=== PATIENT | female | born 2000 | race Caucasian/White ===

== ENCOUNTER 2021-01-26 23:16 | Emergency (ER) | payer OTHER, BC, SELFPAY ==
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
[2021-01-26 23:31] VITALS: BP 120/72; BP 127/83; PULSE 71; PULSE 75; RESP 16; TEMP 36.3; O2SAT 100; BMI 39.1
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
[2021-01-27] MEDS: Ibuprofen 600 MG TABLET PO (00:32)
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
--- NOTE | 2021-01-27 01:35 | PC.NURSE ---
CRUTCHES GIVEN TO PT AND PT DIRECTED HOW TO USE THE CRUTCHES. WILL CONTINUE TO MONITOR PT.
== END 2021-01-27 01:39 | disposition home or self-care (01) ==
PROVIDERS: Emergency Provider Internal Medicine
DX: S90.02XA Contusion of left ankle, initial encounter (principal); V89.2XXA Person injured in unspecified motor-vehicle accident, traffic, initial encounter; Y93.9 Activity, unspecified; Y92.410 Unspecified street and highway as the place of occurrence of the external cause; Y99.9 Unspecified external cause status
CPT/HCPCS: 73610; 73620; 99283

== ENCOUNTER 2021-03-06 17:21 | Emergency (ER) | payer BC, MEDICAID, SELFPAY ==
[2021-03-06 18:01] VITALS: BP 123/85; PULSE 75; RESP 16; TEMP 37.1; O2SAT 100; BMI 31.9
== END 2021-03-06 20:15 | disposition left against medical advice (07) ==
PROVIDERS: Emergency Provider Emergency Medicine
DX: R06.02 Shortness of breath (principal)
CPT/HCPCS: 99281; 99282

== ENCOUNTER 2021-03-20 12:32 | Outpatient (REF) | payer BC, SELFPAY ==
[2021-03-20 12:58] LABS: COVID-19 Test Negative (Negative)
== END 2021-03-20 12:33 | disposition home or self-care (01) ==
LOC: HO.LAB 12:32
PROVIDERS: PCP Nurse Practitioner Pediatrics; Visit Provider Internal Medicine
DX: Z20.822 Contact with and (suspected) exposure to COVID-19 (principal)
CPT/HCPCS: 36415; 87635; C9803

== ENCOUNTER 2022-01-01 14:26 | Emergency (ER) | payer BC, SELFPAY ==
[2022-01-01 14:41] VITALS: BP 125/75; PULSE 68; RESP 18; TEMP 36.8; O2SAT 99; BMI 31.3
--- NOTE | 2022-01-01 14:52 | PC.NURSE ---
patient AXO 3. presents to ed with SI for last two weeks after recent miscarriage . no clear plan . She states I just wish to . with c/o of not sleeping for number of days .
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
== END 2022-01-01 19:24 | disposition home or self-care (01) ==
PROVIDERS: Emergency Provider Emergency Medicine
DX: F32.A Depression, unspecified (principal); Z72.89 Other problems related to lifestyle; Z63.0 Problems in relationship with spouse or partner
CPT/HCPCS: 99282; 99284

== ENCOUNTER 2022-01-03 21:13 | Inpatient (IN) | payer BC, SELFPAY ==
[2022-01-03 21:21] VITALS: BP 125/75; PULSE 81; RESP 17; TEMP 36.2; O2SAT 97; BMI 34.4
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
[2022-01-03 21:55] LABS: COVID-19 Test Negative (Negative)
[2022-01-03 22:04] LABS: MANUAL DIFF FLAG NO
[2022-01-03 22:14] LABS: Basophils Percent Auto 0.4 % (0-2); Eosinophils Percent Auto 0.4 % (0-4); Hematocrit 41.1 % (37.0-47.0); Hemoglobin 13.4 g/dl (12.0-16.0); Imm Gran Abs Auto 0.01 X10*3/uL (0.00-0.03); Imm Gran Pct Auto 0.1 % (0.0-0.4); Lymphocytes Absolute Auto 2.2 X10*3/uL (1.2-4.9); Lymphocytes Percent Auto 31.4 % (20-40); Mean Corpuscular HGB Conc 32.6 g/dl (31.0-35.0); Mean Corpuscular Hemoglobin 26.5 pg (27.0-33.0); Mean Corpuscular Volume 81.4 fL (80.0-98.0); Mean Platelet Volume 9.4 fL (9.4-12.3); Monocytes Absolute Auto 0.3 X10*3/uL (0.1-1.2); Monocytes Percent Auto 4.2 % (2-11); Neutrophils Absolute Auto 4.5 x10*3/uL (2.0-8.3); Neutrophils Percent Auto 63.5 % (45-73); Platelet Count 326 X10*3/uL (160-400); Red Blood Count 5.05 X10*6/uL (4.20-5.50); Red Cell Distribution Width 13.8 % (11.0-16.0); White Blood Count 7.1 X10*3/uL (4.8-10.8)
[2022-01-03 22:16] LABS: Ethanol < 10 mg/dL
[2022-01-03 22:21] LABS: Acetaminophen LAB < 1 mcg/mL (<30); Anion Gap 13 (12-20); Blood Urea Nitrogen 13 mg/dL (9-16); Calcium 9.5 mg/dL (8.4-10.2); Carbon Dioxide 25 mmol/L (22-29); Chloride 107 mmol/L (96-108); Creatinine Clr Calc Pharmacy 112.5; Estimated Glomerular Filt Rate > 60; Glucose Random 89 mg/dL (60-115); Salicylate < 5.0 mg/dL (15-30); Sodium 141 mmol/L (135-145)
--- NOTE | 2022-01-04 06:31 | PC.NURSE ---
Patient slept through the night, no distress observed/reported, behavior non concerning, mood upset, disposition per [facility] is section 12 inpatient bed search, patient is currently not on any maintenance medication, VSS, will continue to monitor.
[2022-01-04 09:41] LABS: Appearance Urine HAZY; Color Urine YELLOW; Glucose Urine UA NEG (NEG); Leukocyte Esterase Urine 1+ (NEG); Nitrite Urine NEG (NEG); Specific Gravity - Urine >= 1.030 (1.005-1.025); Urine Blood 3+ (NEG); Urine Ketones NEG (NEG); Urine Protein TRACE MG/DL (NEG-TRACE)
[2022-01-04 09:47] LABS: UPreg QC Valid YES; Urine Pregnancy NEGATIVE (NEGATIVE)
[2022-01-04 09:49] LABS: Amphetamine Screen Urine Not Detected (Not Detect); Barbiturates, Urine Not Detected (Not Detect); Benzodiazepines Screen Urine Not Detected (Not Detect); Cannabinoid Screen Urine Not Detected (Not Detect); Cocaine Screen Urine Not Detected (Not Detect); Fentanyl, urine Not Detected (Not Detect); Opiate Screen Urine Not Detected (Not Detect); Phencyclidine Screen Urine Not Detected (Not Detect)
[2022-01-04 10:05] LABS: Mucus Urine 2+ /LPF; Squamous Epithelial Cell Urine 1+ /LPF; WBC Urine 50-75 /HPF (0-4)
[2022-01-04 16:29] VITALS: BP 106/71; PULSE 73; RESP 14; TEMP 36.9; O2SAT 96
--- NOTE | 2022-01-05 06:16 | PC.NURSE ---
Patient slept through the night, no distress observed/reported, medication compliant, + for UTI treatment in progress, behavior pleasant and non concerning, disposition per [facility] is section 12 inpatient bed search, VSS, contracted for the safety, will continue to monitor.
[2022-01-05 09:58] VITALS: BP 98/50; PULSE 55; RESP 16; TEMP 36.3; O2SAT 99
[2022-01-05 15:27] VITALS: BP 100/63; PULSE 69; RESP 17; TEMP 36.2; O2SAT 100
--- NOTE | 2022-01-05 23:53 | PC.NURSE ---
Patient in bed appears sleeping, respiration +/=/non-labored bilaterally, no distress observed/reported at this time, medication compliant, behavior pleasant and non concerning, contracted for the safety, VSS, disposition per [facility] is section 12 Inpatient Bed Search, per report patient is pre accepted to for tomorrow, will continue to monitor
[2022-01-05 23:55] VITALS: BP 120/78; PULSE 59; RESP 16; TEMP 36.6; O2SAT 100
--- NOTE | 2022-01-06 | ECG_ITS ---
Test Reason : med clearance Blood Pressure : / mmHG Vent. Rate : 058 BPM Atrial Rate : 058 BPM P-R Int : 178 ms QRS Dur : 096 ms QT Int : 410 ms P-R-T Axes : 032 037 015 degrees QTc Int : 402 ms Sinus bradycardia with sinus arrhythmia Otherwise normal ECG No previous ECGs available Referred By: Cece Tabares Electronically Signed By:Massimo Rossi
--- NOTE | 2022-01-06 07:16 | PC.NURSE ---
patient appears to remain asleep at present respirations are even and unlabored patient appears in no distress
[2022-01-06 08:25] VITALS: BP 123/72; PULSE 60; RESP 16; TEMP 36.3; O2SAT 99
[2022-01-06 09:14] LABS: COVID-19 Test Negative (Negative)
[2022-01-06 16:13] VITALS: BMI 34.9
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
[2022-01-06 17:30] VITALS: BP 122/76; PULSE 20; RESP 18; TEMP 37.1; O2SAT 97
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
[2022-01-06 22:20] VITALS: BP 118/76; PULSE 64; TEMP 36.8
[2022-01-06] MEDS: Melatonin 3 MG TABLET 6 MG PO (22:36)
[2022-01-07 06:37] VITALS: BP 108/60; PULSE 56; RESP 16; TEMP 36.9; O2SAT 99
[2022-01-07 09:09] LABS: Estimated Average Glucose 105 mg/dL; Hemoglobin A1c % 5.3 %
[2022-01-07 09:34] LABS: Cholesterol 155 mg/dL; HDL Cholesterol 38 mg/dL; LDL Cholesterol Calculated 105 mg/dl; Triglycerides 61 mg/dL
[2022-01-07 09:55] LABS: Free T4 (Free Thyroxine) 1.08 ng/dL (0.71-1.85); Thyroid Stimulating Hormone 0.35 uIU/mL (0.32-4.0)
[2022-01-07 10:03] LABS: Folate 7.4 ng/mL (> or = 4.0); Vitamin B12 326 pg/mL (200-900)
[2022-01-07] MEDS: FLUoxetine HCl 10 MG CAPSULE PO (15:12)
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
[2022-01-07 17:35] VITALS: BP 115/64; PULSE 72; TEMP 36.5; O2SAT 100
[2022-01-07] MEDS: traZODone HCL 50 MG TABLET PO (22:23)
[2022-01-08] MEDS: FLUoxetine HCl 10 MG CAPSULE PO (08:52)
--- NOTE | 2022-01-08 10:02 | MHC.CLN ---
NUTRITION DISCUSSED EGG ALLERGY WITH PATIENT. DOES NOT WANT WHOLE EGGS SUCH SCRAMBLED EGGS, HARD COOKED, EGG SALAD. EATS AND TOLERATES S[employer] TOAST, PANCAKES, BAGELS, CAKES, AND OTHER BAKED GOODS. OK FOR EGGS IN BAKED/COOKED FOODS. ADVISED COUNSELOR WORKING WITH PATIENT AND KITCHEN OF FINDINGS.
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
[2022-01-08] MEDS: hydrOXYzine HCL 25 MG TABLET PO (14:46)
[2022-01-08 19:30] VITALS: BP 109/77; PULSE 80; RESP 15; TEMP 36.2; O2SAT 97
[2022-01-08] MEDS: cloNIDine HCL 0.1 MG TABLET PO (22:22)
[2022-01-08] MEDS: traZODone HCL 25 MG HALFTAB 75 MG PO (22:22)
[2022-01-09 06:56] VITALS: BP 110/63; PULSE 74; RESP 16; TEMP 36.4; O2SAT 98
[2022-01-09] MEDS: FLUoxetine HCl 10 MG CAPSULE PO (09:01)
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
== END 2022-01-09 16:11 | disposition home or self-care (01) | DRG 755 ==
LOC: HO.ED 01-04 05:37 → HO.PM5 01-06 14:23
PROVIDERS: Clinical Nurse Specialist Psychiatric/Mental Health, Adult; Physician Assistant Medical; Admitting Provider Psychiatry & Neurology Psychiatry; Emergency Provider Emergency Medicine Emergency Medical Services; Visit Provider Psychiatry & Neurology Psychiatry
DX: F43.23 Adjustment disorder with mixed anxiety and depressed mood (principal); R45.851 Suicidal ideations; N39.0 Urinary tract infection, site not specified; F41.1 Generalized anxiety disorder; Z91.52 Personal history of nonsuicidal self-harm; Z91.51 Personal history of suicidal behavior; Z20.822 Contact with and (suspected) exposure to COVID-19; Z79.899 Other long term (current) drug therapy
CPT/HCPCS: 36415; 80048; 80061; 80143; 80179; 80307; 81001; 81025; 82077; 82607; 82746; 83036; 83735; 84439; 84443; 85025; 87635; 93005; 99285

== ENCOUNTER 2022-02-02 12:20 | Emergency (ER) | payer BC, SELFPAY ==
--- NOTE | ~2022-02-02 | XR_ITS ---
EXAMINATION: LEFT HAND AND WRIST CLINICAL INFORMATION: Pain. COMPARISON: None TECHNIQUE: 4 views of left hand and wrist. FINDINGS: There is an old ulnar styloid process fracture. No acute fracture, dislocation or subluxation seen. The joint spaces are maintained throughout the left wrist and left hand. There is a negative ulnar variance. XR/XR hand wrist LT IMPRESSION: Old ulnar side process fracture with a negative ulnar variance. No acute fracture or dislocation seen. No abnormal soft tissue swelling.
[2022-02-02 12:37] VITALS: BP 130/58; PULSE 92; RESP 16; TEMP 36.8; O2SAT 97; BMI 34.4
[2022-02-02] MEDS: Ketorolac Tromethamine 30 MG/ML VIAL IM (13:25)
[2022-02-02] MEDS: predniSONE 20 MG TABLET 40 MG PO (13:25)
--- NOTE | 2022-02-02 13:29 | ED_ITS ---
HPI - General Adult General Chief complaint: Extremity Problem Stated complaint: ? Left Wrist Fracture Time Seen by Provider: 02/02/22 12:45 Source: patient Mode of arrival: ambulatory Limitations: no limitations History of Present Illness HPI narrative: 21 yold female with pmh of lefr wrist fracture presents to the ED for left wrist pain. Patient states she woke up with left wrist pain yesterday morning and made it worse when she was lifting her grandfather. Patient is her Grandfather's [employer]. patient denies any extremity swelling, redness, chest pain, shortness, slurred speech, weakness, fever, loss of vision, or paralysis of extremties, Related Data Previous Rx's Medication Instructions Recorded cefuroxime axetil 250 mg tablet 250 mg PO BID 5 days #9 tabs 01/09/22 clonidine HCl 0.1 mg tablet 0.1 mg PO BEDTIME PRN insomnia 30 01/09/22 days #30 tabs fluoxetine 10 mg capsule 10 mg PO DAILY 30 days #30 caps 01/09/22 trazodone 50 mg tablet 75 mg PO BEDTIME PRN insomnia 30 01/09/22 days #45 tabs naproxen 500 mg tablet 500 mg PO BID PRN pain 5 days #20 02/02/22 tabs prednisone 20 mg tablet 40 mg PO DAILY 5 days #10 tabs 02/02/22 Allergies Allergy/AdvReac Type Severity Reaction Status Date / Time eggs Allergy Itching Uncoded 01/05/22 10:26 Review of Systems Review of Systems: left wrist pain Yes all other systems are reviewed and are negative Integumentary/Breasts: Comments: left wrist pain PMFSH Social History Social History Household Members: Family Household Members Other:: 4 Housing: House Do you presently have visiting nurse or other home services: No Patient Tobacco Use Status: Former Tobacco user e-Cigarette/Vaping Use: Former Use Second Hand Smoke Exposure: No Advance Directives: No Advance Directives Information Provided: Yes service: No Sexual orientation: Did not discuss Physical Exam ED Vital Signs: Vital Signs - 24 hr 02/02/22 12:37 02/02/22 15:02 Temperature 98.2 F Pulse Rate 92 Respiratory Rate 16 17 Blood Pressure 130/58 L Pulse Oximetry 97 Oxygen Delivery Method Room Air BMI result Body Mass Index 34.4 Const General: cooperative, healthy appearing, comfortable, no acute distress, well developed, alert, awake and Physically active Orientation/consciousness: oriented to person, oriented to place, oriented to time and patient oriented x3 [facility] Head: Yes normal to inspection, Yes No palpable skull fracture present, Yes normocephalic and Yes atraumatic Eyes General: appearance normal, both eyes and all related structures Neck Neck: Yes normal visual inspection, Yes full ROM, Yes no lymphadenopathy, Yes no meningeal signs, Yes trachea midline, Yes supple, No anterior neck swelling and No tender Chest Chest palpation & inspection: normal inspection of the chest and normal palp ation of entire chest wall Resp Effort & Inspection: normal respiratory effort and able to speak in complete sentences Auscultation: clear to auscultation bilaterally Cardio Jugular venous distension: no JVD Heart sounds: S1 normal heart sound present and S2 normal heart sound present GI Inspection: Yes normal to inspection and No abdominal wall ecchymosis Palpation (GI): Soft to palpation, not firm, nontender, no guarding and not rigid General: No CVA tenderness and Yes no CVA tenderness Back/Spine/Pelvis Back: no CVA tenderness, No CVA tenderness and No back tenderness Skin General skin exam: no rashes or lesions noted and elasticity normal Neuro General: oriented to person, oriented to place, oriented to time, patient oriented x3, gait normal, tone normal, moves all extremities, Normal light touch and pain sensation, no meningeal signs, no focal motor deficits and CN's II-XI intact bilaterally Cranial nerves: Yes CN's II-XII intact bilaterally Cognition (Neuro): normal cognition Gait exam (Neuro): Normal gait present Motor exam (neuro): 5/5 motor strength present throughout Sensory Exam: Normal double simultaneous stimulation for sensation Extrem General: Yes normal to inspection and Yes full ROM Hand/finger images: 1. positive for tenderness on palpation. negative for deformity, redness, warmtness, coldness, or ecchymosis. Vascuclar and neuro exam intact. motor exam intact but limited due to pain. positive phalen and tinel sign Psych Appearance: grossly normal, well kempt and not disheveled Course Course Course Narrative: Toradol and steroid ordered. Will do x-ray due to history of left wrist fractur e and patient states pain worse after lifting grandfather. Reevaluation(s) Reevaluation #1: Left wrist x-ray came back normal. History physical exam does not indicate cellulitis, DVT, or arterial occlusion. Patient already has a brace. Patient informed to follow-up with primary care provider. Differential carpal tunnel v ersus wrist sprain so brace will be effective. Time: 14:32 Medical Decision Making MDM Narrative Medical decision making narrative: carpal tunnel sundrome. Wrist sprain Discharge Plan Discharge Clinical Impression: Left wrist sprain Patient Disposition: Home, Self-Care Instructions: Wrist Sprain (ED) Additional Instructions: Differential wrist sprain versus carpal tunnel syndrome. Recommend continued use of wrist brace. You will be discharged with pain meds and steroids. Please follow-up with a primary care for orthopedic referral or our orthopedic doctor. Return to the ED for any swelling, redness, stiffness, bluing black discoloration, warm, coldness, or any other concerning symptosm Prescriptions: New prednisone 20 mg tablet 40 mg PO DAILY 5 Days Qty: 10 0RF naproxen 500 mg tablet 500 mg PO BID PRN (Reason: pain) 5 Days Qty: 20 0RF No Action cefuroxime axetil 250 mg Tablet 250 mg PO BID 5 Days Qty: 9 0RF clonidine HCl 0.1 mg Tablet 0.1 mg PO BEDTIME PRN (Reason: insomnia) 30 Days Qty: 30 0RF Protocol: Hold for SBP< HOLD for SBP < : 90 fluoxetine 10 mg Capsule 10 mg PO DAILY 30 Days Qty: 30 0RF trazodone 50 mg tablet 75 mg PO BEDTIME PRN (Reason: insomnia) 30 Days Qty: 45 0RF Referrals: Tigre Wong MD [Physician] - (leFT WRIST SPRAIN VS CARPAL TUNNEL SYNDROME) Stand Alone Forms: Work/School Release Interventions: ED Discharge Assessment Last Done: 02/02/22 15:03 Discharge Date/Time: 02/02/22 15:05 Print Language: Latvian
[2022-02-02 15:02] VITALS: RESP 17
== END 2022-02-02 15:05 | disposition home or self-care (01) ==
PROVIDERS: Emergency Provider Emergency Medicine
DX: S63.502A Unspecified sprain of left wrist, initial encounter (principal); X50.9XXA Other and unspecified overexertion or strenuous movements or postures, initial encounter; Y93.F9 Activity, other caregiving; Y92.019 Unspecified place in single-family (private) house as the place of occurrence of the external cause; Y99.9 Unspecified external cause status
CPT/HCPCS: 73110; 73130; 96372; 99283; 99284; J1885